=== PATIENT | female | born 1940 | race Hispanic/Latino ===

== ENCOUNTER 2018-10-02 06:20 | Day surgery (SDC) | payer MEDICARE, OTHER ==
[2016-09-25 14:17] VITALS: BMI 25.0
[2018-10-02] MEDS ORDERED: Propofol 10 mg/ml Inj (20 ML) ONE (08:06)
[2018-10-02] MEDS ORDERED: Etomidate 20 mg/10ml Inj IV ONE (08:06)
[2018-10-02] MEDS ORDERED: Sodium Chloride 0.9% 1,000 ML IV SCH (08:45)
[2018-10-02 09:30] VITALS: BP 120/80; PULSE 65; RESP 16; TEMP 98.6; O2SAT 97
== END 2018-10-02 09:48 | disposition home or self-care (01) ==
LOC: ENDO 06:20
PROVIDERS: ATTEND Specialist
DX: K22.70 Barrett's esophagus without dysplasia (principal); K21.9 Gastro-esophageal reflux disease without esophagitis; K44.9 Diaphragmatic hernia without obstruction or gangrene; Z85.72 Personal history of non-Hodgkin lymphomas
CPT/HCPCS: 43239; 88305; 88312; 88342; J2001; J2704; J7030; J7040

== ENCOUNTER 2018-10-30 14:16 | Outpatient (CLI) | payer MEDICARE, OTHER | END 2018-10-30 14:17 | disposition home or self-care (01) | LOC: RAD 14:16 ==

== ENCOUNTER 2018-11-06 14:13 | Outpatient (CLI) | payer MEDICARE, OTHER | END 2018-11-06 14:14 | disposition home or self-care (01) | LOC: RAD 14:13 | DX: M79.604 Pain in right leg (principal); M79.605 Pain in left leg; M54.9 Dorsalgia, unspecified ==

== ENCOUNTER 2018-11-25 11:13 | Outpatient (CLI) | payer MEDICARE, OTHER | END 2018-11-25 11:14 | disposition home or self-care (01) | LOC: LAB 11:13 ==